=== PATIENT | female | born 1965 | race Two or more races ===

== ENCOUNTER 2021-03-07 12:43 | Emergency (ER) | payer SELFPAY ==
[~2021-03-07] VITALS: Ht 165.1 cm; Wt 72.6 kg
[2021-03-07 13:29] VITALS: BP 112/67
[2021-03-07] MEDS ORDERED: IBUPROFEN 800 MG TAB PO ONE (13:45)
[2021-03-07] MEDS ORDERED: cefTRIAXone SOD 1,000 MG VL IM ONE (13:45)
== END 2021-03-07 14:09 | disposition home or self-care (01) ==
LOC: ER 12:43
DX: K02.9 Dental caries, unspecified (principal); R22.0 Localized swelling, mass and lump, head; E11.9 Type 2 diabetes mellitus without complications; F99 Mental disorder, not otherwise specified
CPT/HCPCS: 96372; 99283; J0696

== ENCOUNTER 2021-08-02 10:42 | Inpatient (IN) | payer MEDICAID, OTHER ==
[~2021-08-02] VITALS: Ht 157.5 cm; Wt 63.7 kg
[2021-08-02 13:21] LABS: Basophils # (auto) 0 10 ^3/uL (0-0.2); Basophils % (auto) 0.5 % (0.0-2.0); Eosinophils # (auto) 0 10 ^3/uL (0-0.8); Eosinophils % (auto) 0.2 % (0.0-7.0); Hematocrit 39.4 % (36.0-46.0); Hemoglobin 13.5 g/dL (12.2-16.2); Lymphocytes % (auto) 13.8 % (10.0-50.0); Mean Corpuscular Hemoglobin 31.7 pg (28.0-32.0); Mean Corpuscular Hgb Conc. 34.1 g/dL (32.0-36.0); Mean Corpuscular Volume 92.8 fL (80.0-100.0); Monocytes # (auto) 0.3 10 ^3/uL (0-1.3); Monocytes % (auto) 3.9 % (0.0-12.0); Neutrophils % (auto) 81.6 % (37.0-80.0); Nucleated Red Blood Cells % 0.1 %; Red Blood Cells 4.25 10^6/uL (4.0-5.20); Red Cell Distribution Width 13.2 % (11.8-14.3); White Blood Cell 7.4 10^3/uL (4.4-10.8)
[2021-08-02 13:43] LABS: Albumin 3.7 g/dL (3.4-5.0); Calcium 8.6 mg/dL (8.5-10.1); Magnesium 2.4 mg/dL (1.6-2.6); Potassium 5.2 mmol/L (3.5-5.1)
[2021-08-02 13:46] LABS: Lactic Acid w/Reflex 2.6 mmol/L (0.4-2.0)
[2021-08-02 13:49] LABS: Bilirubin, Total 0.2 mg/dL (0.2-1.0); Total Protein 7.4 g/dL (6.4-8.2)
[2021-08-02 15:08] LABS: Urine Blood 1+ /uL (Negative); Urine Specific Gravity 1.015 (1.001-1.035); Urine WBC 5 /hpf (0 - 5)
[2021-08-02 15:12] LABS: Urine Bacteria FEW /hpf (None Seen)
[2021-08-02 15:53] LABS: Alcohol, Urine < 3.0 mg/dL (0-10); Amphetamine Screen, Urine NEGATIVE (NEGATIVE); Barbiturate Scree,Urine NEGATIVE (NEGATIVE); Benzodiazephine Screen, Urine NEGATIVE (NEGATIVE); Cannabinoid Screen, Urine NEGATIVE (NEGATIVE); Cocaine Screen, Urine NEGATIVE (NEGATIVE); Opiate Scree,Urine NEGATIVE (NEGATIVE); Phencyclidine Screen, Urine NEGATIVE (NEGATIVE)
[2021-08-02] MEDS ORDERED: cefTRIAXone 1GM/50ML D5W 50 ML IV ONE (16:00)
[2021-08-02] MEDS ORDERED: LACTATED RINGER'S 1,000 ML IV ONE (16:30)
[2021-08-02] MEDS ORDERED: MORPHINE SULFATE INJECTION 2 MG/ML SYRG IV PRN ×2 (17:45→21:00)
[2021-08-02] MEDS ORDERED: CALCIUM CHL 100MG/ML 1,000 MG in D5W 5% 100 ML IV ONE (17:45)
[2021-08-02] MEDS ORDERED: FUROSEMIDE 40 MG/4 ML VIAL IV ONE (17:45)
[2021-08-02] MEDS ORDERED: SODIUM ZIRCONIUM CYCL 10 GM PAK PO ONE (17:45)
[2021-08-02] MEDS ORDERED: ALBUTEROL SULF 2.5 MG/0.5ML(0.5%) NEB SOLN NEB ONE (17:45)
[2021-08-02] MEDS ORDERED: InsuLIN REG 1unit/0.01ml Soln (100units/ml) IV ONE (17:45)
[2021-08-02] MEDS ORDERED: NITROGLYCERIN 0.4 MG SL TAB SL PRN (17:45)
[2021-08-02] MEDS ORDERED: SODIUM BICARBONATE 8.4% INJ 50ML SYRINGE IV ONE (17:45)
[2021-08-02] MEDS ORDERED: DEXTROSE (50%) 50ML SYRG IV ONE (17:45)
[2021-08-02 21:00] VITALS: BP 101/60
[2021-08-02] MEDS ORDERED: PANTOPRAZOLE 40 MG/10 ML VIAL INJ IV ONE (21:00)
[2021-08-02] MEDS ORDERED: hydrALAZINE HCL 20 MG/ML VL IV PRN (21:00)
[2021-08-02] MEDS ORDERED: FERROUS SULFATE 325mg EC TAB PO ONE (21:00)
[2021-08-02] MEDS ORDERED: IPRATROPIUM BROM 0.5 MG/2.5ML INH SOL NEB ONE (21:00)
[2021-08-02] MEDS ORDERED: ONDANSETRON HCL 4 MG/2 ML VIAL IV PRN (21:00)
[2021-08-02] MEDS ORDERED: ACETAMINOPHEN 325 MG TAB PO PRN (21:00)
[2021-08-02] MEDS ORDERED: MULTIPLE VITAMINS W/ MINERALS TAB PO ONE (21:00)
[2021-08-02] MEDS ORDERED: SUCRALFATE 1 GM/10 ML ORAL SUSP PO ONE (21:00)
[2021-08-02] MEDS ORDERED: HYDROcodone-ACET 5/325MG TAB PO PRN (21:00)
[2021-08-02] MEDS ORDERED: LACTULOSE 20Gm/30ML SOLN PO PRN (21:00)
[2021-08-02] MEDS ORDERED: CLINDAMYCIN 600MG IV 50 ML IV ONE (21:00)
[2021-08-02] MEDS ORDERED: ALPRAZolam 0.5 MG TAB PO PRN (21:00)
[2021-08-02] MEDS ORDERED: HYDROcodone-ACET 5/325MG TAB PO ONE (21:00)
[2021-08-02] MEDS ORDERED: DOCUSATE SOD 100 MG CAP PO PRN (21:00)
[2021-08-02] MEDS ORDERED: DEXTROSE (50%) 50ML SYRG IV PRN (21:15)
[2021-08-02] MEDS ORDERED: CARB200T4 PO (21:42)
[2021-08-02] MEDS ORDERED: CLON-857 PO (21:42)
[2021-08-02] MEDS ORDERED: METF-371 PO (21:42)
[2021-08-02 22:00] VITALS: BP 97/52
[2021-08-02] MEDS: ACCU-CHEK COMFORT CURVE STRIP VI SCH (22:00)
[2021-08-02] MEDS ORDERED: IPRATROPIUM BROM 0.5 MG/2.5ML INH SOL NEB PRN (22:00)
[2021-08-02] MEDS ORDERED: IPRATROPIUM BROM 0.5 MG/2.5ML INH SOL NEB SCH (22:00)
[2021-08-02] MEDS: InsuLIN REG 1unit/0.01ml Soln (100units/ml) SC SCH (22:00)
[2021-08-02] MEDS: SODIUM CHLORIDE 0.9% 1,000 ML IV SCH (22:30)
[2021-08-02] MEDS: ATORVASTATIN 20 MG TAB PO SCH (22:43)
[2021-08-02] MEDS: carBAMazepine 200 MG TAB PO SCH (22:43)
[2021-08-03 00:37] VITALS: BP 97/52
[2021-08-03 00:48] LABS: Potassium 3.6 mmol/L (3.5-5.1)
[2021-08-03 00:53] LABS: Magnesium 2.3 mg/dL (1.6-2.6)
[2021-08-03 00:54] LABS: INR 1.07 (0.9-1.15); Partial Thromboplastin Time 29.3 sec (23.6-33.0)
[2021-08-03 00:58] LABS: Creatine Kinase IFCC 84 U/L (26-192); Phosphorus 3.6 mg/dL (2.5-4.90)
[2021-08-03 05:00] VITALS: BP 114/40
[2021-08-03] MEDS: CLINDAMYCIN 600MG IV 50 ML IV SCH ×3 (05:50→22:27)
[2021-08-03] MEDS ORDERED: SODIUM ZIRCONIUM CYCL 10 GM PAK PO SCH (06:00)
[2021-08-03] MEDS: InsuLIN REG 1unit/0.01ml Soln (100units/ml) SC SCH ×4 (06:33→22:00)
[2021-08-03] MEDS: ACCU-CHEK COMFORT CURVE STRIP VI SCH ×4 (06:33→22:28)
[2021-08-03 06:40] LABS: Basophils # (auto) 0.1 10 ^3/uL (0-0.2); Eosinophils # (auto) 0.1 10 ^3/uL (0-0.8); Eosinophils % (auto) 1.2 % (0.0-7.0); Hematocrit 36.9 % (36.0-46.0); Hemoglobin 12.7 g/dL (12.2-16.2); Lymphocytes # (auto) 2.2 10 ^3/uL (0.4-5.4); Lymphocytes % (auto) 37.8 % (10.0-50.0); Mean Corpuscular Hemoglobin 31.8 pg (28.0-32.0); Mean Corpuscular Hgb Conc. 34.5 g/dL (32.0-36.0); Mean Corpuscular Volume 92.3 fL (80.0-100.0); Monocytes # (auto) 0.5 10 ^3/uL (0-1.3); Nucleated Red Blood Cells % 0.1 %; Red Cell Distribution Width 12.7 % (11.8-14.3); White Blood Cell 5.8 10^3/uL (4.4-10.8)
[2021-08-03] MEDS: SUCRALFATE 1 GM/10 ML ORAL SUSP PO SCH ×4 (06:56→22:27)
[2021-08-03 07:02] LABS: Chloride 105 mmol/L (98-107); Potassium 4.1 mmol/L (3.5-5.1); Sodium 139 mmol/L (136-145)
[2021-08-03 07:07] LABS: INR 1.04 (0.9-1.15); Partial Thromboplastin Time 28.7 sec (23.6-33.0)
[2021-08-03 07:28] LABS: Alanine Aminotransferase 21 U/L (13-56); Albumin 3.6 g/dL (3.4-5.0); Alkaline Phosphatase 79 U/L (45-117); Anion Gap 8 (5-15); Aspartate Aminotransferase 22 U/L (15-37); BUN/Creatinine Ratio 27.5; Bilirubin, Total 0.2 mg/dL (0.2-1.0); Blood Urea Nitrogen 14 mg/dL (7-18); CRP High Sensitivity 0.51 mg/dL (< 0.3); Calcium 8.8 mg/dL (8.5-10.1); Carbon Dioxide 26 mmol/L (21-32); Cholesterol 189 mg/dL (< 200); Creatine Kinase IFCC 96 U/L (26-192); GFR African American 161 mL/min; GFR Non-African American 133 mL/min; Glucose 84 mg/dL (74-106); HDL Cholesterol 57 mg/dL (40-59); LDL Cholesterol 113 mg/dL (< 100); Lipase 122 U/L (73-393); Magnesium 2.7 mg/dL (1.6-2.6); Phosphorus 4.3 mg/dL (2.5-4.90); Total Protein 7.5 g/dL (6.4-8.2); Triglycerides 70 mg/dL (< 150)
[2021-08-03 08:00] VITALS: BP 139/107
[2021-08-03] MEDS: FERROUS SULFATE 325mg EC TAB PO SCH ×3 (08:00→18:00)
[2021-08-03] MEDS: cefTRIAXone 1GM/50ML D5W 50 ML IV SCH (09:00)
[2021-08-03] MEDS: PANTOPRAZOLE 40 MG/10 ML VIAL INJ IV SCH (10:00)
[2021-08-03] MEDS: carBAMazepine 200 MG TAB PO SCH ×2 (10:00→22:27)
[2021-08-03] MEDS: ENOXAPARIN SOD 40 MG/0.4 ML SYRINGE SC SCH (10:00)
[2021-08-03] MEDS: CYANOCOBALAMIN 500 MCG TAB PO SCH (10:00)
[2021-08-03] MEDS: CHOLECALCIFEROL (VITD3) 2,000 UNIT CAP/TAB PO SCH (10:00)
[2021-08-03] MEDS: MULTIPLE VITAMINS W/ MINERALS TAB PO SCH (10:00)
[2021-08-03] MEDS: THIAMINE HCL 100 MG TAB PO SCH (10:00)
[2021-08-03] MEDS: ASPirin 81 mg TAB PO SCH (10:00)
[2021-08-03] MEDS ORDERED: clonazePAM 0.5 MG TAB PO PRN (12:30)
[2021-08-03] MEDS ORDERED: SILDENAFIL CITRATE 20 MG TAB PO ONE (12:30)
[2021-08-03 13:00] VITALS: BP 150/89
[2021-08-03] MEDS: SODIUM CHLORIDE 0.9% 1,000 ML IV SCH (13:55)
[2021-08-03 17:30] VITALS: BP 121/78
[2021-08-03] MEDS: SILDENAFIL CITRATE 20 MG TAB PO SCH (20:49)
[2021-08-03 22:00] VITALS: BP 114/56
[2021-08-03] MEDS ORDERED: chlorproMAZINE HCL 25 MG TAB PO SCH (22:00)
[2021-08-03] MEDS: ATORVASTATIN 20 MG TAB PO SCH (22:27)
[2021-08-04 05:00] VITALS: BP 114/64
[2021-08-04 05:21] LABS: Basophils # (auto) 0 10 ^3/uL (0-0.2); Basophils % (auto) 0.7 % (0.0-2.0); Eosinophils # (auto) 0.1 10 ^3/uL (0-0.8); Eosinophils % (auto) 1.7 % (0.0-7.0); Hematocrit 36.3 % (36.0-46.0); Hemoglobin 12.7 g/dL (12.2-16.2); Lymphocytes # (auto) 2.8 10 ^3/uL (0.4-5.4); Lymphocytes % (auto) 42.1 % (10.0-50.0); Mean Corpuscular Hemoglobin 32.1 pg (28.0-32.0); Mean Corpuscular Hgb Conc. 34.9 g/dL (32.0-36.0); Mean Corpuscular Volume 91.9 fL (80.0-100.0); Monocytes # (auto) 0.5 10 ^3/uL (0-1.3); Monocytes % (auto) 7.8 % (0.0-12.0); Neutrophils # (auto) 3.1 10 ^3/uL (1.6-8.6); Neutrophils % (auto) 47.7 % (37.0-80.0); Nucleated Red Blood Cells % 0.1 %; Red Blood Cells 3.95 10^6/uL (4.0-5.20); Red Cell Distribution Width 12.7 % (11.8-14.3); White Blood Cell 6.6 10^3/uL (4.4-10.8)
[2021-08-04 05:35] LABS: INR 1.08 (0.9-1.15); Partial Thromboplastin Time 31.1 sec (23.6-33.0)
[2021-08-04 05:42] LABS: Albumin 3.3 g/dL (3.4-5.0); Calcium 8.4 mg/dL (8.5-10.1); Magnesium 2.4 mg/dL (1.6-2.6); Potassium 3.7 mmol/L (3.5-5.1)
[2021-08-04 05:45] LABS: BUN/Creatinine Ratio 25.6; Bilirubin, Total 0.2 mg/dL (0.2-1.0); Phosphorus 3.1 mg/dL (2.5-4.90); Total Protein 6.8 g/dL (6.4-8.2)
[2021-08-04] MEDS: SODIUM CHLORIDE 0.9% 1,000 ML IV SCH (06:20)
[2021-08-04] MEDS: CLINDAMYCIN 600MG IV 50 ML IV SCH ×3 (06:26→22:06)
[2021-08-04] MEDS: InsuLIN REG 1unit/0.01ml Soln (100units/ml) SC SCH ×4 (07:00→22:00)
[2021-08-04] MEDS: SUCRALFATE 1 GM/10 ML ORAL SUSP PO SCH (07:01)
[2021-08-04] MEDS: ACCU-CHEK COMFORT CURVE STRIP VI SCH ×4 (07:01→22:07)
[2021-08-04] MEDS: FERROUS SULFATE 325mg EC TAB PO SCH (08:00)
[2021-08-04] MEDS: SILDENAFIL CITRATE 20 MG TAB PO SCH (08:00)
[2021-08-04 08:24] VITALS: BP 105/65
[2021-08-04] MEDS: cefTRIAXone 1GM/50ML D5W 50 ML IV SCH (09:00)
[2021-08-04] MEDS: THIAMINE HCL 100 MG TAB PO SCH (09:46)
[2021-08-04] MEDS: ASPirin 81 mg TAB PO SCH (09:46)
[2021-08-04] MEDS: MULTIPLE VITAMINS W/ MINERALS TAB PO SCH (09:46)
[2021-08-04] MEDS: PANTOPRAZOLE 40 MG/10 ML VIAL INJ IV SCH (09:46)
[2021-08-04] MEDS: CYANOCOBALAMIN 500 MCG TAB PO SCH (09:47)
[2021-08-04] MEDS: CHOLECALCIFEROL (VITD3) 2,000 UNIT CAP/TAB PO SCH (09:47)
[2021-08-04] MEDS: ENOXAPARIN SOD 40 MG/0.4 ML SYRINGE SC SCH (09:47)
[2021-08-04] MEDS: carBAMazepine 200 MG TAB PO SCH (10:04)
[2021-08-04] MEDS ORDERED: SODIUM CHLORIDE 0.9% 1,000 ML IV ONE (10:15)
[2021-08-04] MEDS ORDERED: PHENYTOIN SODIUM 50 MG/ML 2ML VIAL IV ONE (10:45)
[2021-08-04 13:00] VITALS: BP 115/62
[2021-08-04 16:53] VITALS: BP 120/64
[2021-08-04] MEDS: PHENYTOIN SODIUM 50 MG/ML 2ML VIAL IV SCH (22:06)
[2021-08-04 22:40] VITALS: BP 110/69
[2021-08-05] MEDS: SODIUM CHLORIDE 0.9% 1,000 ML IV SCH ×2 (04:09→20:00)
[2021-08-05 05:18] VITALS: BP 118/60
[2021-08-05] MEDS: CLINDAMYCIN 600MG IV 50 ML IV SCH (05:44)
[2021-08-05 06:22] LABS: Albumin 3.8 g/dL (3.4-5.0); BUN/Creatinine Ratio 15.2; Calcium 9.2 mg/dL (8.5-10.1)
[2021-08-05 06:29] LABS: Bilirubin, Total 0.3 mg/dL (0.2-1.0); Total Protein 7.6 g/dL (6.4-8.2)
[2021-08-05] MEDS: InsuLIN REG 1unit/0.01ml Soln (100units/ml) SC SCH ×4 (07:00→22:00)
[2021-08-05] MEDS: ACCU-CHEK COMFORT CURVE STRIP VI SCH ×4 (07:39→22:35)
[2021-08-05 08:33] VITALS: BP 108/58
[2021-08-05] MEDS: PANTOPRAZOLE 40 MG/10 ML VIAL INJ IV SCH (10:05)
[2021-08-05] MEDS: cefTRIAXone 1GM/50ML D5W 50 ML IV SCH (10:06)
[2021-08-05] MEDS: ENOXAPARIN SOD 40 MG/0.4 ML SYRINGE SC SCH (10:06)
[2021-08-05] MEDS: PHENYTOIN SODIUM 50 MG/ML 2ML VIAL IV SCH (10:07)
[2021-08-05] MEDS: LORazepam 2MG/ML-1ML VIAL IV PRN ×2 (11:35→17:58)
[2021-08-05 12:33] VITALS: BP 134/74
[2021-08-05 16:38] VITALS: BP 95/58
[2021-08-05] MEDS ORDERED: PHENYTOIN SODIUM 50 MG/ML 2ML VIAL IV SCH (21:15)
[2021-08-05] MEDS ORDERED: PHENYTOIN IV DILANTIN 1,000 MG in SODIUM CHL 0.9% 250 ML IV ONE (21:15)
[2021-08-05 22:00] VITALS: BP 100/56
[2021-08-05] MEDS: [UNRECOGNIZED DRUG - OTHER] PO SCH (22:35)
[2021-08-05] MEDS: clonazePAM 0.5 MG TAB PO SCH (22:35)
[2021-08-06 05:00] VITALS: BP 102/60
[2021-08-06] MEDS: PHENYTOIN SODIUM 50 MG/ML 2ML VIAL IV SCH ×3 (06:50→21:12)
[2021-08-06] MEDS: ACCU-CHEK COMFORT CURVE STRIP VI SCH ×4 (06:50→21:13)
[2021-08-06] MEDS: InsuLIN REG 1unit/0.01ml Soln (100units/ml) SC SCH ×4 (06:52→21:13)
[2021-08-06 08:52] VITALS: BP 124/55
[2021-08-06] MEDS: LORazepam 2MG/ML-1ML VIAL IV PRN ×3 (10:03→19:34)
[2021-08-06] MEDS: cefTRIAXone 1GM/50ML D5W 50 ML IV SCH (10:03)
[2021-08-06] MEDS: ENOXAPARIN SOD 40 MG/0.4 ML SYRINGE SC SCH (10:04)
[2021-08-06] MEDS: PANTOPRAZOLE 40 MG/10 ML VIAL INJ IV SCH (10:04)
[2021-08-06 13:00] VITALS: BP 117/71
[2021-08-06 16:34] VITALS: BP 110/79
[2021-08-06 20:00] VITALS: BP 112/60
[2021-08-06] MEDS: clonazePAM 0.5 MG TAB PO SCH (21:13)
[2021-08-06] MEDS: [UNRECOGNIZED DRUG - OTHER] PO SCH (21:13)
[2021-08-06 22:00] VITALS: BP 112/60
[2021-08-07] MEDS: SODIUM CHLORIDE 0.9% 1,000 ML IV SCH ×2 (01:54→20:00)
[2021-08-07 05:00] VITALS: BP_SYST 126; BP_SYST 83; BP_DIAS 53; BP_DIAS 87
[2021-08-07] MEDS: ACCU-CHEK COMFORT CURVE STRIP VI SCH ×4 (06:14→22:13)
[2021-08-07] MEDS: PHENYTOIN SODIUM 50 MG/ML 2ML VIAL IV SCH ×3 (06:14→22:13)
[2021-08-07] MEDS: InsuLIN REG 1unit/0.01ml Soln (100units/ml) SC SCH ×4 (06:14→22:00)
[2021-08-07 09:00] VITALS: BP 111/60
[2021-08-07] MEDS: PANTOPRAZOLE 40 MG/10 ML VIAL INJ IV SCH (11:37)
[2021-08-07] MEDS: cefTRIAXone 1GM/50ML D5W 50 ML IV SCH (11:37)
[2021-08-07] MEDS: ENOXAPARIN SOD 40 MG/0.4 ML SYRINGE SC SCH (11:38)
[2021-08-07 13:00] VITALS: BP 97/50
[2021-08-07 17:00] VITALS: BP 105/54
[2021-08-07] MEDS: Glucerna Carbsteady SHAKE Vanilla 8oz PO SCH (18:00)
[2021-08-07 21:38] VITALS: BP 100/54
[2021-08-07] MEDS: clonazePAM 0.5 MG TAB PO SCH (22:00)
[2021-08-07] MEDS: [UNRECOGNIZED DRUG - OTHER] PO SCH (22:00)
[2021-08-08 05:00] VITALS: BP 95/55
[2021-08-08] MEDS: PHENYTOIN SODIUM 50 MG/ML 2ML VIAL IV SCH ×3 (06:00→21:31)
[2021-08-08 06:54] LABS: Basophils # (auto) 0 10 ^3/uL (0-0.2); Basophils % (auto) 0.7 % (0.0-2.0); Eosinophils # (auto) 0.2 10 ^3/uL (0-0.8); Eosinophils % (auto) 2.3 % (0.0-7.0); Hematocrit 31.7 % (36.0-46.0); Lymphocytes # (auto) 2.7 10 ^3/uL (0.4-5.4); Lymphocytes % (auto) 40.1 % (10.0-50.0); Mean Corpuscular Hemoglobin 32.1 pg (28.0-32.0); Mean Corpuscular Hgb Conc. 34.8 g/dL (32.0-36.0); Mean Corpuscular Volume 92.1 fL (80.0-100.0); Monocytes # (auto) 0.6 10 ^3/uL (0-1.3); Monocytes % (auto) 8.4 % (0.0-12.0); Neutrophils # (auto) 3.2 10 ^3/uL (1.6-8.6); Neutrophils % (auto) 48.5 % (37.0-80.0); Nucleated Red Blood Cells % 0.1 %; Red Blood Cells 3.45 10^6/uL (4.0-5.20); Red Cell Distribution Width 12.8 % (11.8-14.3); White Blood Cell 6.7 10^3/uL (4.4-10.8)
[2021-08-08] MEDS: InsuLIN REG 1unit/0.01ml Soln (100units/ml) SC SCH ×4 (07:00→21:33)
[2021-08-08] MEDS: ACCU-CHEK COMFORT CURVE STRIP VI SCH ×4 (07:00→21:33)
[2021-08-08 07:03] LABS: Potassium 3.2 mmol/L (3.5-5.1)
[2021-08-08 07:05] LABS: Albumin 2.8 g/dL (3.4-5.0); BUN/Creatinine Ratio 23.5; Calcium 8.3 mg/dL (8.5-10.1)
[2021-08-08 07:08] LABS: Bilirubin, Total 0.3 mg/dL (0.2-1.0); Total Protein 5.9 g/dL (6.4-8.2)
[2021-08-08] MEDS: Glucerna Carbsteady SHAKE Vanilla 8oz PO SCH ×2 (08:22→19:03)
[2021-08-08 09:00] VITALS: BP 111/52
[2021-08-08] MEDS: PANTOPRAZOLE 40 MG/10 ML VIAL INJ IV SCH (11:29)
[2021-08-08] MEDS: ENOXAPARIN SOD 40 MG/0.4 ML SYRINGE SC SCH (11:29)
[2021-08-08] MEDS: SODIUM CHLORIDE 0.9% 1,000 ML IV SCH (11:30)
[2021-08-08] MEDS ORDERED: POTASSIUM EFFERVESENT TAB 25 MEQ PO ONE (12:00)
[2021-08-08 12:30] VITALS: BP 94/50
[2021-08-08 17:00] VITALS: BP 90/49
[2021-08-08 20:00] VITALS: BP 112/64
[2021-08-08] MEDS: clonazePAM 0.5 MG TAB PO SCH (21:32)
[2021-08-08 22:00] VITALS: BP 112/64
[2021-08-08] MEDS: [UNRECOGNIZED DRUG - OTHER] PO SCH (22:00)
[2021-08-09 05:00] VITALS: BP 83/50
[2021-08-09] MEDS: SODIUM CHLORIDE 0.9% 1,000 ML IV SCH (05:17)
[2021-08-09] MEDS: PHENYTOIN SODIUM 50 MG/ML 2ML VIAL IV SCH ×2 (05:58→14:07)
[2021-08-09] MEDS: InsuLIN REG 1unit/0.01ml Soln (100units/ml) SC SCH ×2 (06:40→11:30)
[2021-08-09] MEDS: ACCU-CHEK COMFORT CURVE STRIP VI SCH ×2 (06:40→11:30)
[2021-08-09] MEDS: Glucerna Carbsteady SHAKE Vanilla 8oz PO SCH (08:04)
[2021-08-09 09:00] VITALS: BP 110/57
[2021-08-09] MEDS: PANTOPRAZOLE 40 MG/10 ML VIAL INJ IV SCH (09:43)
[2021-08-09] MEDS: ENOXAPARIN SOD 40 MG/0.4 ML SYRINGE SC SCH (09:43)
[2021-08-09] MEDS ORDERED: LEVE100012 PO (12:31)
[2021-08-09] MEDS ORDERED: PHE100C PO (12:31)
[2021-08-09] MEDS ORDERED: CLON0.5T3 PO (12:31)
[2021-08-09 13:00] VITALS: BP 109/62
[2021-08-09 14:39] VITALS: BP 95/51
[2021-08-09 16:18] VITALS: BP 95/51
[2021-08-09 16:53] VITALS: BP 112/64
== END 2021-08-09 17:15 | disposition home health service (06) | DRG 53 ==
LOC: EDBD 10:42 → ER 10:42 → OVERFLOW 17:32 → WEST WING 20:00 → TELE-WESTW 08-04 10:45
PROVIDERS: ADMIT Hospitalist; ATTEND Internal Medicine
PROC: 05HC33Z Insertion of Infusion Device into Left Basilic Vein, Percutaneous Approach (ICD-10-PCS; principal; 2021-08-02)
PROC: B54NZZA Ultrasonography of Left Upper Extremity Veins, Guidance (ICD-10-PCS; 2021-08-02)
DX: G40.201 Localization-related (focal) (partial) symptomatic epilepsy and epileptic syndromes with complex partial seizures, not intractable, with status epilepticus (principal); T17.928A Food in respiratory tract, part unspecified causing other injury, initial encounter; D18.1 Lymphangioma, any site; N39.0 Urinary tract infection, site not specified; E87.5 Hyperkalemia; F84.0 Autistic disorder; E66.9 Obesity, unspecified; E78.5 Hyperlipidemia, unspecified; F79 Unspecified intellectual disabilities; Z20.822 Contact with and (suspected) exposure to COVID-19; E11.9 Type 2 diabetes mellitus without complications; Z79.84 Long term (current) use of oral hypoglycemic drugs; Z79.899 Other long term (current) drug therapy; Z68.23 Body mass index [BMI] 23.0-23.9, adult; Y92.89 Other specified places as the place of occurrence of the external cause
CPT/HCPCS: 36415; 36600; 70450; 71045; 80053; 80061; 80156; 80185; 80307; 81001; 82140; 82542; 82550; 82728; 82805; 82962; 83036; 83605; 83615; 83690; 83735; 83880; 84100; 84132; 84146; 84443; 84484; 85025; 85379; 85610; 85652; 85730; 86141; 87040; 87086; 92610; 93005; 94640; 95819; 96365; C9113; G0378; J0696; J1815; J3490; J7060; Q0161

== ENCOUNTER 2023-12-03 12:16 | Inpatient (IN) | payer MEDICAID ==
[~2023-12-03] VITALS: Ht 165.1 cm; Wt 56.9 kg
[~2023-12-03 12:16] MED LIST: CLON0.5T3 PO; LEVE100012 PO; METF-371 PO; PHEN1CAP60 PO
[2023-12-03 14:18] LABS: Basophils # (auto) 0.1 10 ^3/uL (0-0.2); Basophils % (auto) 0.6 % (0.0-2.0); Eosinophils # (auto) 0.2 10 ^3/uL (0-0.8); Eosinophils % (auto) 1.9 % (0.0-7.0); Hematocrit 43.4 % (36.0-46.0); Hemoglobin 14.6 g/dL (12.2-16.2); Lymphocytes # (auto) 3.4 10 ^3/uL (0.4-5.4); Lymphocytes % (auto) 34.6 % (10.0-50.0); Mean Corpuscular Hemoglobin 32.5 pg (28.0-32.0); Mean Corpuscular Hgb Conc. 33.6 g/dL (32.0-36.0); Mean Corpuscular Volume 96.7 fL (80.0-100.0); Monocytes # (auto) 0.8 10 ^3/uL (0-1.3); Monocytes % (auto) 8.6 % (0.0-12.0); Neutrophils # (auto) 5.4 10 ^3/uL (1.6-8.6); Neutrophils % (auto) 54.3 % (37.0-80.0); Red Blood Cells 4.48 10^6/uL (4.0-5.20); Red Cell Distribution Width 12.9 % (11.8-14.3); White Blood Cell 9.9 10^3/uL (4.4-10.8)
[2023-12-03 14:37] LABS: Alanine Aminotransferase 30 U/L (7-40); Albumin 4.8 g/dL (3.2-4.8); Alkaline Phosphatase 83 U/L (46-116); Anion Gap 10 (5-15); Aspartate Aminotransferase 31 U/L (13-40); BUN/Creatinine Ratio 31.9 (10.0-20.0); Blood Urea Nitrogen 15 mg/dL (9-23); Calcium 10.1 mg/dL (8.7-10.4); Carbon Dioxide 25 mmol/L (20-30); Chloride 105 mmol/L (98-107); Glucose 113 mg/dL (74-106); Potassium 4.9 mmol/L (3.5-5.1); Sodium 140 mmol/L (136-145)
[2023-12-03 14:38] LABS: Bilirubin, Total 0.2 mg/dL (0.2-1.0); Total Protein 7.2 g/dL (5.7-8.2)
[2023-12-03 14:51] LABS: Urine Bacteria None Seen /hpf (None Seen)
[2023-12-03 14:56] LABS: Urine Blood Negative /uL (Negative); Urine Clarity Clear (Clear); Urine Color Yellow (Yellow); Urine Protein, UAD Negative (Negative); Urine Specific Gravity 1.026 (1.001-1.035); Urine Urobilinogen Normal (Negative); Urine WBC 1 /hpf (0 - 5)
[2023-12-03 15:18] LABS: Lactic Acid w/Reflex 2.2 mmol/L (0.4-2.0)
[2023-12-03 15:24] VITALS: PULSE 94; RESP 20; O2SAT 95
[2023-12-03 17:46] LABS: Magnesium 2.2 mg/dL (1.6-2.6)
[2023-12-03] MEDS: SODIUM CHLORIDE 0.9% 500 ML IVB ONE (18:11)
[2023-12-03] MEDS: cefTRIAXone 1GM/50ML D5W 50 ML IV ONE (18:11)
[2023-12-03] MEDS: LORazepam 2MG/ML-1ML VIAL IV ONE (18:11)
[2023-12-03] MEDS: SODIUM CHLORIDE 0.9% 1,000 ML IV ONE (18:39)
[2023-12-03] MEDS ORDERED: LEVE500T40 PO (19:39)
[2023-12-03] MEDS: HALOPERIDOL LACTATE 5 MG/ML INJ VIAL IM ONE (19:46)
[2023-12-03] MEDS: IOHEXOL 300 MG/ML 100ML BOTTLE IJ ONE (20:53)
[2023-12-03] MEDS ORDERED: DEXTROSE (50%) 50ML SYRG IV PRN (21:15)
[2023-12-03] MEDS ORDERED: ACETAMINOPHEN 325 MG TAB PO PRN (21:15)
[2023-12-03] MEDS ORDERED: LORazepam 2MG/ML-1ML VIAL IV PRN (21:15)
[2023-12-03] MEDS ORDERED: ONDANSETRON HCL 4 MG/2 ML VIAL IV PRN (21:15)
[2023-12-03] MEDS: levETIRAcetam 500 MG TAB PO SCH (22:00)
[2023-12-03] MEDS: InsuLIN REG 1unit/0.01ml Soln (100units/ml) SC SCH (22:00)
[2023-12-03] MEDS: clonazePAM 0.5 MG TAB PO SCH (22:00)
[2023-12-03] MEDS: ACCU-CHEK COMFORT CURVE STRIP VI SCH (22:00)
[2023-12-03] MEDS: levETIRAcetam 1000 mg/100ml 100 ML IV ONE (22:38)
[2023-12-03] MEDS: SODIUM CHLORIDE 0.9% 500 ML IV ONE (22:59)
[2023-12-04 06:05] LABS: Basophils # (auto) 0 10 ^3/uL (0-0.2); Basophils % (auto) 0.4 % (0.0-2.0); Eosinophils # (auto) 0.2 10 ^3/uL (0-0.8); Hematocrit 41.9 % (36.0-46.0); Hemoglobin 14.4 g/dL (12.2-16.2); Lymphocytes # (auto) 4.4 10 ^3/uL (0.4-5.4); Lymphocytes % (auto) 39.1 % (10.0-50.0); Mean Corpuscular Hemoglobin 33.3 pg (28.0-32.0); Mean Corpuscular Hgb Conc. 34.2 g/dL (32.0-36.0); Mean Corpuscular Volume 97.4 fL (80.0-100.0); Monocytes % (auto) 8.5 % (0.0-12.0); Neutrophils # (auto) 5.7 10 ^3/uL (1.6-8.6); Nucleated Red Blood Cells % 0.1 %; Red Cell Distribution Width 13.2 % (11.8-14.3); White Blood Cell 11.3 10^3/uL (4.4-10.8)
[2023-12-04 06:12] LABS: Calcium 8.2 mg/dL (8.7-10.4); Chloride 107 mmol/L (98-107); Sodium 140 mmol/L (136-145)
[2023-12-04 06:13] LABS: Anion Gap 12 (5-15); Carbon Dioxide 21 mmol/L (20-30)
[2023-12-04 06:18] LABS: Glucose 109 mg/dL (74-106)
[2023-12-04 06:21] LABS: Blood Urea Nitrogen 6 mg/dL (9-23)
[2023-12-04 08:00] VITALS: PULSE 98; RESP 16; O2SAT 98
[2023-12-04] MEDS: cefTRIAXone 1GM/50ML D5W 50 ML IV SCH (09:23)
[2023-12-04 11:12] VITALS: PULSE 86; RESP 19; O2SAT 97
[2023-12-04] MEDS: risperiDONE 1 MG TAB PO SCH (11:31)
[2023-12-04 11:34] VITALS: BP 134/76; PULSE 86; RESP 19; TEMP 98.4; O2SAT 97
[2023-12-04] MEDS ORDERED: RISP1TAB63 PO (12:06)
[2023-12-04 17:00] VITALS: BP 156/89; PULSE 99; RESP 18; TEMP 99; O2SAT 95
[2023-12-04 20:00] VITALS: PULSE 99; RESP 18; O2SAT 95
[2023-12-04 21:00] VITALS: BP 149/104; PULSE 46; RESP 16; O2SAT 94
[2023-12-05 05:00] VITALS: BP 121/79; PULSE 99; RESP 18; TEMP 97.4; O2SAT 98
[2023-12-05 08:00] VITALS: BP 141/84; PULSE 101; PULSE 90; RESP 18; TEMP 98; O2SAT 93; O2SAT 96
[2023-12-05 12:00] VITALS: BP 106/65; PULSE 79; RESP 18; TEMP 98.9; O2SAT 98
[2023-12-05 16:00] VITALS: BP 126/71; PULSE 75; RESP 18; TEMP 98.4; O2SAT 93
[2023-12-05] MEDS: LACTULOSE 20Gm/30ML SOLN PO ONE (18:49)
[2023-12-05] MEDS: DOCUSATE SOD 100 MG CAP PO ONE (18:49)
[2023-12-05 20:00] VITALS: PULSE 85; RESP 20; O2SAT 97
[2023-12-05 21:00] VITALS: BP 108/75; PULSE 85; RESP 20; TEMP 98.6; O2SAT 97
[2023-12-06 05:00] VITALS: BP 117/80; PULSE 74; RESP 18; TEMP 97.9; O2SAT 98
[2023-12-06 08:00] VITALS: PULSE 90; RESP 18; O2SAT 96
[2023-12-06 09:00] VITALS: BP 123/66; PULSE 102; RESP 18; TEMP 98.7; O2SAT 97
[2023-12-06] MEDS: DOCUSATE SOD 100 MG CAP PO SCH (09:09)
[2023-12-06] MEDS: LACTULOSE 20Gm/30ML SOLN PO SCH (09:09)
[2023-12-06 13:00] VITALS: BP 107/75; PULSE 86; RESP 18; TEMP 97.4; O2SAT 94
[2023-12-06 17:00] VITALS: BP 136/82; PULSE 92; RESP 18; TEMP 97.6; O2SAT 94
== END 2023-12-06 17:30 | disposition home or self-care (01) | DRG 425 ==
LOC: ER 12:16 → OVERFLOW 21:20 → WEST WING 12-04 12:51
PROVIDERS: ADMIT Internal Medicine; ATTEND Nurse Practitioner Acute Care
PROC: 05HB33Z Insertion of Infusion Device into Right Basilic Vein, Percutaneous Approach (ICD-10-PCS; principal; 2023-12-05)
PROC: B54MZZA Ultrasonography of Right Upper Extremity Veins, Guidance (ICD-10-PCS; 2023-12-05)
DX: E87.20 Acidosis, unspecified (principal); R56.9 Unspecified convulsions; E11.9 Type 2 diabetes mellitus without complications; F41.9 Anxiety disorder, unspecified; K59.00 Constipation, unspecified; Z87.440 Personal history of urinary (tract) infections; R62.50 Unspecified lack of expected normal physiological development in childhood
CPT/HCPCS: 36415; 71045; 74177; 80048; 80053; 81001; 82962; 83036; 83605; 83690; 83735; 85025; 87040; 87086; 96365; 96366; 96367; 96372; 96375; G0378; J1815

== ENCOUNTER 2023-12-24 17:28 | Emergency (ER) | payer MEDICAID ==
[~2023-12-24] VITALS: Ht 152.4 cm; Wt 56.0 kg
[~2023-12-24 17:28] MED LIST changes: -LEVE100012 PO; +LEVE500T40 PO; +PHEN1CAP38 PO; -PHEN1CAP60 PO; +RISP1TAB63 PO
[2023-12-24 17:50] VITALS: BP 115/60; PULSE 108; RESP 22; O2SAT 97
[2023-12-24 19:28] LABS: Basophils # (auto) 0.1 10 ^3/uL (0-0.2); Basophils % (auto) 0.7 % (0.0-2.0); Eosinophils # (auto) 0.4 10 ^3/uL (0-0.8); Eosinophils % (auto) 2.9 % (0.0-7.0); Hematocrit 44.6 % (36.0-46.0); Lymphocytes # (auto) 4.4 10 ^3/uL (0.4-5.4); Lymphocytes % (auto) 32.8 % (10.0-50.0); Mean Corpuscular Hemoglobin 32.6 pg (28.0-32.0); Mean Corpuscular Hgb Conc. 33.6 g/dL (32.0-36.0); Mean Corpuscular Volume 97.1 fL (80.0-100.0); Monocytes # (auto) 1.1 10 ^3/uL (0-1.3); Monocytes % (auto) 8.1 % (0.0-12.0); Neutrophils # (auto) 7.4 10 ^3/uL (1.6-8.6); Neutrophils % (auto) 55.5 % (37.0-80.0); Nucleated Red Blood Cells % 0.2 %; Red Blood Cells 4.59 10^6/uL (4.0-5.20); Red Cell Distribution Width 13.1 % (11.8-14.3); White Blood Cell 13.3 10^3/uL (4.4-10.8)
[2023-12-24 19:42] LABS: Anion Gap 8 (5-15); Carbon Dioxide 27 mmol/L (20-30); Chloride 105 mmol/L (98-107); Potassium 4.5 mmol/L (3.5-5.1); Sodium 140 mmol/L (136-145)
[2023-12-24 19:43] LABS: Calcium 10.1 mg/dL (8.7-10.4)
[2023-12-24 19:46] LABS: Urine Bacteria None Seen /hpf (None Seen)
[2023-12-24 19:48] LABS: BUN/Creatinine Ratio 9.5 (10.0-20.0); Blood Urea Nitrogen 6 mg/dL (9-23); Glucose 160 mg/dL (74-106)
[2023-12-24 20:06] LABS: Urine Blood TRACE /uL (Negative); Urine Clarity Clear (Clear); Urine Color Light-Yellow (Yellow); Urine Hyaline Cast FEW /lpf (0 - 2); Urine Mucus FEW (None Seen); Urine Protein, UAD Negative (Negative); Urine Specific Gravity 1.013 (1.001-1.035); Urine Urobilinogen Normal (Negative); Urine WBC 2 /hpf (0 - 5)
== END 2023-12-24 21:18 | disposition home or self-care (01) ==
LOC: ER 17:28
DX: R33.9 Retention of urine, unspecified (principal); E11.9 Type 2 diabetes mellitus without complications; Z45.2 Encounter for adjustment and management of vascular access device
CPT/HCPCS: 36415; 80048; 81001; 85025